=== PATIENT | female | born 1955 | race Caucasian/White ===

== ENCOUNTER 2017-02-16 06:54 | Emergency (ER) | payer MEDICAID ==
[~2017-02-16] VITALS: Ht 160 cm; Wt 73.3 kg
[~2017-02-16 06:54] MED LIST: ACET325T14 PO; ASPI-515 PO; ATOR20TA PO; CHOLESTEROL PO; DOCU100C33 PO; FAMO40TA61 PO; FEXO180T15 PO; FLUT16SP NAS; FLUT1DIS INH; GABA300C10 PO; HYDR-3240 PO; LORA10TA3 PO; LOSA25TA2 PO; METO25TA35 PO; NAPR500T4 PO; NITR0.4T SL
[2017-02-16] MEDS ORDERED: ATOR10TA9 PO (07:23)
[2017-02-16] MEDS ORDERED: OMEG1CAP23 PO (07:24)
[2017-02-16] MEDS ORDERED: SODIUM CHLORIDE 0.9% 1,000 ML IV ONE (07:24)
[2017-02-16] MEDS ORDERED: SODIUM CHLORIDE FLUSH 10ML SYR IVF ONE (07:30)
[2017-02-16] MEDS ORDERED: ONDANSETRON 2MG/ML, 2ML IVPush ONE (07:30)
[2017-02-16] MEDS ORDERED: ONDANSETRON 2MG/ML, 2ML ONE (07:34)
[2017-02-16] MEDS ORDERED: MORPHINE SULFATE 4 MG/ML, 1ML ONE ×2 (07:34→08:46)
[2017-02-16 07:37] LABS: HEMATOCRIT 43.4 % (34.6-47.8); HEMOGLOBIN 14.3 g/dL (11.7-16.4)
[2017-02-16] MEDS: MORPHINE SULFATE 4 MG/ML, 1ML IVPush PRN ×2 (07:37→08:49)
[2017-02-16 07:49] LABS: BLOOD UREA NITROGEN 11 mg/dL (7-18)
[2017-02-16 07:52] LABS: ASPARTATE AMINO TRANSFERASE 14 U/L (15-37)
[2017-02-16] MEDS ORDERED: OMNIPAQUE 350 MG/ML, 100ML BOTTLE ONE (09:10)
[2017-02-16 09:18] LABS: IS PT STATUS REG ER OR PRE ER? YES
[2017-02-16 10:43] VITALS: BP 114/55
== END 2017-02-16 11:09 | disposition home or self-care (01) ==
LOC: ED 10:14
DX: N30.00 Acute cystitis without hematuria (principal); E78.5 Hyperlipidemia, unspecified; Z79.82 Long term (current) use of aspirin; Z90.710 Acquired absence of both cervix and uterus
CPT/HCPCS: 36415; 74177; 74181; 76700; 80053; 81001; 83690; 84484; 85025; 87077; 87086; 93005; 96361; 96374; 96375; 96376; 99285; J2405; J7030; Q9967; 87186

== ENCOUNTER 2017-04-02 17:33 | Emergency (ER) | payer MEDICAID ==
[~2017-04-02] VITALS: Ht 160 cm; Wt 74.3 kg
[~2017-04-02 17:33] MED LIST changes: +ATOR10TA9 PO; +OMEG1CAP23 PO
[2017-04-02] MEDS ORDERED: SODIUM CHLORIDE FLUSH 10ML SYR IVF ONE (18:00)
[2017-04-02] MEDS ORDERED: MAALOX/HYOSCYAMINE/LIDOCAINE 45 ML BTL PO ONE ×2 (18:00→19:00)
[2017-04-02] MEDS ORDERED: ONDANSETRON 2MG/ML, 2ML IVPush ONE (18:00)
[2017-04-02] MEDS ORDERED: SODIUM CHLORIDE 0.9% 1,000ML IVBOLUS ONE (18:00)
[2017-04-02 18:16] LABS: BASOPHILS # (AUTO) 0.05 x10^3/uL (0-0.1); BASOPHILS % (AUTO) 1 % (0-1); EOSINOPHILS # (AUTO) 0.11 x10^3/uL (0-0.4); EOSINOPHILS % (AUTO) 2 % (1-7); LYMPHOCYTES % (AUTO) 27 % (22-44); MD NO; MEAN CORPUSCULAR HEMOGLOBIN 29.7 pg (27.0-34.8); MEAN CORPUSCULAR HGB CONC 32.9 g/dL (32.4-35.8); MEAN CORPUSCULAR VOLUME 90.3 fL (80-100); MEAN PLATELET VOLUME 9.7 fL (7.4-10.4); MONOCYTES # (AUTO) 0.56 x10^3/uL (0.2-0.8); MONOCYTES % (AUTO) 7 % (2-9); NEUTROPHILS # (AUTO) 4.87 x10^3/uL (1.8-6.8); NEUTROPHILS % (AUTO) 63 % (42-75); PLATELET COUNT 180 x10^3/uL (130-400); RED BLOOD COUNT 4.57 x10^6/uL (3.82-5.3)
[2017-04-02 18:23] LABS: ALANINE AMINOTRANSFERASE 38 U/L (12-78); ALBUMIN 3.4 g/dL (3.4-5.0); ANION GAP 7 mmol/L (5-15); CALCIUM 8.4 mg/dL (8.5-10.1); CHLORIDE 111 mmol/L (98-107); CREATININE 0.66 mg/dL (0.55-1.02)
[2017-04-02 18:26] LABS: ALKALINE PHOSPHATASE 116 U/L (45-117); BILIRUBIN,TOTAL 0.2 mg/dL (0.2-1.0); TOTAL PROTEIN 6.9 g/dL (6.4-8.2)
[2017-04-02 18:43] LABS: TROPONIN I < 0.015 ng/mL (0.000-0.045)
[2017-04-02] MEDS ORDERED: HYDROmorphone 1 MG/ML, 1ML IVPush PRN (19:00)
[2017-04-02 19:26] LABS: MICROSCOPIC NOT IND
[2017-04-02 19:28] LABS: CULTURE INDICATED? NO
[2017-04-02] MEDS ORDERED: HYDROmorphone 1 MG/ML, 1ML ONE (19:33)
[2017-04-02] MEDS ORDERED: ONDANSETRON 2MG/ML, 2ML ONE (19:33)
[2017-04-02] MEDS ORDERED: MAALOX/HYOSCYAMINE/LIDOCAINE 45 ML BTL ONE (19:33)
[2017-04-02 19:39] VITALS: BP 141/70
== END 2017-04-02 20:31 | disposition home or self-care (01) ==
LOC: ED 19:55
DX: R10.13 Epigastric pain (principal); K21.9 Gastro-esophageal reflux disease without esophagitis; E78.00 Pure hypercholesterolemia, unspecified; Z90.710 Acquired absence of both cervix and uterus
CPT/HCPCS: 36415; 71045; 76700; 80053; 81003; 83690; 84484; 85025; 93005; 96361; 96374; 96375; 99285; J1170; J2405; J7030

== ENCOUNTER 2018-03-30 10:05 | Emergency (ER) | payer MEDICAID ==
[~2018-03-30] VITALS: Ht 160 cm; Wt 72.0 kg
[~2018-03-30 10:05] MED LIST changes: +LORA-247 PO; -LORA10TA3 PO; +NAPR-685 PO; -NAPR500T4 PO
[2018-03-30 10:07] VITALS: BP 124/77
[2018-03-30] MEDS ORDERED: OMEP-110 PO (10:37)
[2018-03-30] MEDS ORDERED: AMIT25TA PO (10:37)
--- NOTE | 2018-03-30 10:42 | NUR ---
urine sample collected and walked to lab at this time. pt resting in bed with spouse at bedside. awaiting MD assessment. Will continue to monitor.
[2018-03-30 10:51] LABS: MICROSCOPIC AUTO
[2018-03-30] MEDS ORDERED: MORPHINE SULFATE 4 MG/ML, 1ML IVPush PRN (11:00)
[2018-03-30] MEDS ORDERED: ONDANSETRON 2MG/ML, 2ML IVPush ONE (11:00)
[2018-03-30] MEDS ORDERED: SODIUM CHLORIDE FLUSH 10ML SYR IVF ONE (11:00)
--- NOTE | 2018-03-30 11:04 | NUR ---
us at bedside at this time.
[2018-03-30 11:06] LABS: BASOPHILS # (AUTO) 0.03 x10^3/uL (0-0.1); BASOPHILS % (AUTO) 1 % (0-1); EOSINOPHILS # (AUTO) 0.12 x10^3/uL (0-0.4); EOSINOPHILS % (AUTO) 2 % (1-7); LYMPHOCYTES # (AUTO) 1.57 x10^3/uL (1-3.4); LYMPHOCYTES % (AUTO) 29 % (22-44); MD NO; MEAN CORPUSCULAR HEMOGLOBIN 30.1 pg (27.0-34.8); MEAN CORPUSCULAR HGB CONC 33.2 g/dL (32.4-35.8); MEAN CORPUSCULAR VOLUME 90.8 fL (80-100); MEAN PLATELET VOLUME 10.1 fL (7.4-10.4); MONOCYTES # (AUTO) 0.31 x10^3/uL (0.2-0.8); MONOCYTES % (AUTO) 6 % (2-9); NEUTROPHILS # (AUTO) 3.31 x10^3/uL (1.8-6.8); NEUTROPHILS % (AUTO) 62 % (42-75); PLATELET COUNT 183 x10^3/uL (130-400); RED BLOOD COUNT 4.77 x10^6/uL (3.82-5.3); RED CELL DISTRIBUTION WIDTH 14.1 % (9.6-15.2)
[2018-03-30 11:14] LABS: ALBUMIN 3.6 g/dL (3.4-5.0); ANION GAP 5 mmol/L (5-15); CALCIUM 9.1 mg/dL (8.5-10.1); CHLORIDE 109 mmol/L (98-107)
--- NOTE | 2018-03-30 11:16 | NUR ---
ekg completed and pt placed on monitor at this time. IV started. pt medicated per orders. will continue to monitor.
[2018-03-30 11:17] LABS: ALANINE AMINOTRANSFERASE 26 U/L (12-78); ALKALINE PHOSPHATASE 146 U/L (45-117); BILIRUBIN,TOTAL 0.4 mg/dL (0.2-1.0); CREATININE 0.69 mg/dL (0.55-1.02); TOTAL PROTEIN 7.2 g/dL (6.4-8.2)
[2018-03-30] MEDS ORDERED: ONDANSETRON 2MG/ML, 2ML ONE (11:24)
[2018-03-30] MEDS ORDERED: MORPHINE SULFATE 4 MG/ML, 1ML ONE (11:25)
--- NOTE | 2018-03-30 11:36 | NUR ---
pt placed on oxygen due to decrease in oxygen saturations post medication administration. will continue to monitor.
--- NOTE | 2018-03-30 11:50 | NUR ---
Beside report to
--- NOTE | 2018-03-30 12:00 | NUR ---
PT TO CT AT THIS TIME. PT REPORTING RIGHT FLANK AND LOWER RIGHT QUADRANT PAIN. PT HAS PAINFUL URINATION WITH NO INCREASED FREQUENCY.
--- NOTE | 2018-03-30 12:22 | NUR ---
SPOKE WITH REGARDIGN IF UA NEEDS TO BE CULTURED. AGREES AT THIS TIME.
[2018-03-30] MEDS ORDERED: CEFTRIAXONE PMX 1GM/50ML 50 ML IV ONE (12:30)
[2018-03-30] MEDS ORDERED: CEFTRIAXONE PMX 1GM/50ML 50 ML ONE (12:42)
--- NOTE | 2018-03-30 12:46 | NUR ---
IV ABX STARTED.
--- NOTE | 2018-03-30 13:22 | NUR ---
Patient/Caregiver given discharge instructions and they have confirmed that they understand the instructions. Patient ambulatory with steady gait.
== END 2018-03-30 13:24 | disposition home or self-care (01) ==
LOC: ED 10:56
DX: N30.01 Acute cystitis with hematuria (principal); K21.9 Gastro-esophageal reflux disease without esophagitis; E78.5 Hyperlipidemia, unspecified; E78.00 Pure hypercholesterolemia, unspecified
CPT/HCPCS: 36415; 74176; 76700; 80053; 81001; 83690; 85025; 87077; 87086; 93005; 96365; 96375; 99284; J0696; J2405; 87186

== ENCOUNTER 2018-04-01 08:42 | Emergency (ER) | payer MEDICAID ==
[~2018-04-01] VITALS: Ht 160 cm; Wt 72.7 kg
[~2018-04-01 08:42] MED LIST changes: +AMIT25TA PO; +OMEP-110 PO
[2018-04-01] MEDS ORDERED: SODIUM CHLORIDE FLUSH 10ML SYR IVF ONE (09:30)
[2018-04-01] MEDS ORDERED: MORPHINE SULFATE 4 MG/ML, 1ML IVPush PRN (09:30)
[2018-04-01] MEDS ORDERED: MORPHINE SULFATE 4 MG/ML, 1ML ONE (09:38)
[2018-04-01 09:50] LABS: BASOPHILS # (AUTO) 0.03 x10^3/uL (0-0.1); BASOPHILS % (AUTO) 1 % (0-1); EOSINOPHILS % (AUTO) 4 % (1-7); LYMPHOCYTES # (AUTO) 1.25 x10^3/uL (1-3.4); LYMPHOCYTES % (AUTO) 22 % (22-44); MD NO; MEAN CORPUSCULAR HEMOGLOBIN 30.2 pg (27.0-34.8); MEAN CORPUSCULAR HGB CONC 33.4 g/dL (32.4-35.8); MEAN CORPUSCULAR VOLUME 90.6 fL (80-100); MEAN PLATELET VOLUME 10.5 fL (7.4-10.4); MONOCYTES # (AUTO) 0.29 x10^3/uL (0.2-0.8); MONOCYTES % (AUTO) 5 % (2-9); NEUTROPHILS # (AUTO) 3.88 x10^3/uL (1.8-6.8); NEUTROPHILS % (AUTO) 69 % (42-75); PLATELET COUNT 174 x10^3/uL (130-400); RED BLOOD COUNT 4.66 x10^6/uL (3.82-5.3); RED CELL DISTRIBUTION WIDTH 14.1 % (9.6-15.2)
[2018-04-01 09:59] LABS: ALBUMIN 3.4 g/dL (3.4-5.0); ANION GAP 5 mmol/L (5-15); CALCIUM 8.6 mg/dL (8.5-10.1); CHLORIDE 108 mmol/L (98-107)
--- NOTE | 2018-04-01 09:59 | NUR ---
PT HERE FOR EPIGASTRIC PAIN FOR 2 DAYS. NAUSEA AND VOMITING. HAS HAD SAME PAIN IN THE PAST AND DESPITE TEST HAS NOT BEEN DIAGNOSED. DENIES DIARRHEA. SEEN HERE THIS WEEK AND GIVEN ABX FOR UTI. STILL HAVING DYSURIA. HX OF CARDIAC ISSUES, NOT SURE WHAT TYPE, AND HIGH CHOLESTEROL. MEDICATED FOR 9/10 PAIN AND NOW REPORTING PAIN IS 4/10. TO RADIOLOGY [facility] AT THIS TIME.
[2018-04-01 10:05] LABS: ALANINE AMINOTRANSFERASE 23 U/L (12-78); ALKALINE PHOSPHATASE 132 U/L (45-117); BILIRUBIN,TOTAL 0.6 mg/dL (0.2-1.0); CREATININE 0.62 mg/dL (0.55-1.02); TOTAL PROTEIN 7.1 g/dL (6.4-8.2); TROPONIN I < 0.015 ng/mL (0.000-0.045)
--- NOTE | 2018-04-01 10:15 | NUR ---
REPORT FROM EVERARDO BARBER.
--- NOTE | 2018-04-01 10:25 | NUR ---
PT UP TO RESTROOM TO OBTAIN URINE. URINE SENT TO LAB.
[2018-04-01 10:50] VITALS: BP 127/64
[2018-04-01 10:51] LABS: MICROSCOPIC AUTO
[2018-04-01 10:53] LABS: CULTURE INDICATED? YES
--- NOTE | 2018-04-01 11:50 | NUR ---
PT GIVEN DC PAPERWORK. PT VERBALIZED UNDERSTANDING. PT AWARE TO FOLLOW UP WITH PCP NEEDED.
== END 2018-04-01 11:57 | disposition home or self-care (01) ==
LOC: ED 09:24
DX: N30.00 Acute cystitis without hematuria (principal); R11.0 Nausea; E78.5 Hyperlipidemia, unspecified; K21.9 Gastro-esophageal reflux disease without esophagitis; E78.00 Pure hypercholesterolemia, unspecified; Z90.710 Acquired absence of both cervix and uterus
CPT/HCPCS: 36415; 74022; 80053; 81001; 83605; 83690; 84484; 85025; 87086; 87106; 93005; 96374; 99284

== ENCOUNTER 2018-04-24 09:41 | Emergency (ER) | payer MEDICARE, MEDICAID ==
[~2018-04-24] VITALS: Ht 160 cm; Wt 72.0 kg
[2018-04-24] MEDS ORDERED: ONDANSETRON 2MG/ML, 2ML ONE (10:21)
[2018-04-24] MEDS ORDERED: MORPHINE SULFATE 4 MG/ML, 1ML ONE ×2 (10:21→11:46)
[2018-04-24] MEDS: MORPHINE SULFATE 4 MG/ML, 1ML IVPush PRN ×2 (10:27→12:00)
[2018-04-24] MEDS ORDERED: MAALOX/HYOSCYAMINE/LIDOCAINE 45 ML BTL PO ONE (10:30)
[2018-04-24] MEDS ORDERED: MAALOX/HYOSCYAMINE/LIDOCAINE 45 ML BTL ONE (10:52)
[2018-04-24] MEDS ORDERED: ONDANSETRON 2MG/ML, 2ML IVPush ONE (11:00)
[2018-04-24 11:14] LABS: MEAN CORPUSCULAR HEMOGLOBIN 29.2 pg (27.0-34.8); MEAN CORPUSCULAR HGB CONC 32.4 g/dL (32.4-35.8); MEAN CORPUSCULAR VOLUME 90.4 fL (80-100); MEAN PLATELET VOLUME 10.4 fL (7.4-10.4); PLATELET COUNT 146 x10^3/uL (130-400); RED BLOOD COUNT 4.71 x10^6/uL (3.82-5.3); RED CELL DISTRIBUTION WIDTH 14.4 % (9.6-15.2)
[2018-04-24 11:21] LABS: ALANINE AMINOTRANSFERASE 67 U/L (12-78); ALBUMIN 3.6 g/dL (3.4-5.0); ANION GAP 7 mmol/L (5-15); CALCIUM 8.5 mg/dL (8.5-10.1); CHLORIDE 106 mmol/L (98-107)
[2018-04-24 11:24] LABS: ALKALINE PHOSPHATASE 162 U/L (45-117); CREATININE 0.68 mg/dL (0.55-1.02); TOTAL PROTEIN 6.9 g/dL (6.4-8.2)
[2018-04-24] MEDS ORDERED: SODIUM CHLORIDE FLUSH 10ML SYR IVF ONE (12:00)
[2018-04-24 12:35] LABS: MICROSCOPIC AUTO
[2018-04-24 12:48] LABS: MD YES
[2018-04-24 12:50] LABS: <RBC MORPHOLOGY> NORMAL; BAND#(MANUAL) 1.96 x10^3/uL; BANDS%(MANUAL) 13 % (0-7); EOS% (MANUAL) 2 % (1-7); LYMPH#(MANUAL) 0.45 x10^3/uL (1-3.4); LYMPHS% (MANUAL) 3 % (22-44); MONOS#(MANUAL) 0.45 x10^3/uL (0.3-2.7); MONOS% (MANUAL) 3 % (2-9); SEG#(MANUAL) 11.93 x10^3/uL (1.8-6.8); SEGS% (MANUAL) 79 % (42-75)
[2018-04-24 12:51] LABS: <PLATELET ESTIMATE> ADEQUATE; LARGE PLATELETS 1+
[2018-04-24 13:08] LABS: CULTURE INDICATED? YES
--- NOTE | 2018-04-24 13:27 | NUR ---
BREAK RN - PT IN CT. AT BEDSIDE.
[2018-04-24] MEDS ORDERED: OMNIPAQUE 350 MG/ML, 100ML BOTTLE ONE (13:37)
[2018-04-24 14:18] VITALS: BP 149/72
== END 2018-04-24 14:21 | disposition home or self-care (01) ==
LOC: ED 12:49
DX: K29.00 Acute gastritis without bleeding (principal); K21.9 Gastro-esophageal reflux disease without esophagitis; E78.00 Pure hypercholesterolemia, unspecified; E78.5 Hyperlipidemia, unspecified; G44.209 Tension-type headache, unspecified, not intractable; Z90.710 Acquired absence of both cervix and uterus; Z87.19 Personal history of other diseases of the digestive system
CPT/HCPCS: 36415; 74021; 74177; 80053; 81001; 83690; 85025; 87086; 93005; 96374; 96375; 96376; 99284; J2405; Q9967

== ENCOUNTER 2018-08-07 12:06 | Emergency (ER) | payer MEDICARE, MEDICAID ==
[~2018-08-07] VITALS: Ht 160 cm; Wt 71.1 kg
[~2018-08-07 12:06] MED LIST changes: -NITR0.4T SL; +NITR0.4T41 SL
[2018-08-07 12:37] LABS: BASOPHILS # (AUTO) 0.02 x10^3/uL (0-0.1); BASOPHILS % (AUTO) 0 % (0-1); EOSINOPHILS # (AUTO) 0.08 x10^3/uL (0-0.4); EOSINOPHILS % (AUTO) 1 % (1-7); LYMPHOCYTES # (AUTO) 1.33 x10^3/uL (1-3.4); LYMPHOCYTES % (AUTO) 20 % (22-44); MD NO; MEAN CORPUSCULAR HEMOGLOBIN 29.7 pg (27.0-34.8); MEAN CORPUSCULAR HGB CONC 32.2 g/dL (32.4-35.8); MEAN CORPUSCULAR VOLUME 92.4 fL (80-100); MONOCYTES # (AUTO) 0.34 x10^3/uL (0.2-0.8); MONOCYTES % (AUTO) 5 % (2-9); NEUTROPHILS # (AUTO) 5.02 x10^3/uL (1.8-6.8); NEUTROPHILS % (AUTO) 74 % (42-75); PLATELET COUNT 167 x10^3/uL (130-400); RED BLOOD COUNT 4.81 x10^6/uL (3.82-5.3); RED CELL DISTRIBUTION WIDTH 14.8 % (9.6-15.2)
[2018-08-07 12:50] LABS: ALANINE AMINOTRANSFERASE 22 U/L (12-78); ALBUMIN 3.6 g/dL (3.4-5.0); ANION GAP 6 mmol/L (5-15); CALCIUM 8.9 mg/dL (8.5-10.1); CHLORIDE 104 mmol/L (98-107); CREATININE 0.73 mg/dL (0.55-1.02)
[2018-08-07 12:52] LABS: ALKALINE PHOSPHATASE 120 U/L (45-117); BILIRUBIN,TOTAL 0.4 mg/dL (0.2-1.0); TOTAL PROTEIN 6.8 g/dL (6.4-8.2)
--- NOTE | 2018-08-07 13:56 | NUR ---
PT TO ED FOR EPIGASTRIC PAIN X2 DAYS [facility] ASSOCIATED N/V. LBM TODAY. PT STATES SHE STOPPED TAKING ALL OF HER MEDICATION EXCEPT OMEPRAZOLE 12 DAYS AGO. PT CONNECTED TO MONITORS. VSS. NO NEEDS EXPRESSED. AWAITING EDMD ASSESSMENT.
--- NOTE | 2018-08-07 13:57 | NUR ---
PT WAS UP WITH STEADY GAIT TO RR PRIOR TO BEING ROOMED AND WAS NOT GIVEN A URINE CUP. PT UNABLE TO PROVIDE UA SAMPLE AT THIS TIME.
[2018-08-07] MEDS ORDERED: FAMOTIDINE 20 MG/2 ML ONE (14:10)
[2018-08-07] MEDS ORDERED: ONDANSETRON 2MG/ML, 2ML ONE (14:10)
[2018-08-07] MEDS ORDERED: HYDROcodone/APAP 5/325 TABLET ONE (14:10)
--- NOTE | 2018-08-07 14:27 | NUR ---
REPORT FROM BROOKLYN MCGEE, IV ESTABLISHED AND PT MEDICATED PER MAR
[2018-08-07] MEDS ORDERED: FAMOTIDINE 20 MG/2 ML IVP ONE (14:30)
[2018-08-07] MEDS ORDERED: ONDANSETRON 2MG/ML, 2ML IVPush ONE (14:30)
[2018-08-07] MEDS ORDERED: HYDROcodone/APAP 5/325 TABLET PO ONE (14:30)
--- NOTE | 2018-08-07 14:33 | NUR ---
IV ESTABLISHED. PT TO CT.
--- NOTE | 2018-08-07 14:33 | NUR ---
REPORT TO EVERARDO WAY.
[2018-08-07] MEDS ORDERED: OMNIPAQUE 350 MG/ML, 100ML BOTTLE ONE (14:52)
--- NOTE | 2018-08-07 15:32 | NUR ---
URINE SENT TO LAB, AWAITNG UA RESULTS. PT STATES SHE IS FEELING BETTER. AT BEDSIDE. CALL LIGHT WITHIN REACH
[2018-08-07 15:53] LABS: MICROSCOPIC NOT IND
[2018-08-07 15:55] VITALS: BP 116/54
[2018-08-07 16:04] LABS: CULTURE INDICATED? NO
== END 2018-08-07 16:31 | disposition home or self-care (01) ==
LOC: ED 16:14
DX: K29.00 Acute gastritis without bleeding (principal); Z90.710 Acquired absence of both cervix and uterus; K21.9 Gastro-esophageal reflux disease without esophagitis
CPT/HCPCS: 36415; 74177; 76700; 80053; 81003; 83690; 85025; 93005; 96374; 96375; 99284; J2405; J3490; Q9967

== ENCOUNTER → 2020-05-05 | Outpatient (CLI) | payer MEDICARE, MEDICAID ==
[~2020-05-05] MED LIST changes: -ASPI-515 PO; +ASPI-963 PO; +ASPI81TA45 PO; +ATOR-2 PO; -FLUT16SP NAS; +FLUT16SP24 NAS; +HYDR-1067 PO; -HYDR-3240 PO; +NITR0.4T28 SL
== END | disposition home or self-care (01) ==
LOC: RAD 08:02
PROVIDERS: ATTEND Physician Assistant
DX: R94.5 Abnormal results of liver function studies (principal); R10.11 Right upper quadrant pain
CPT/HCPCS: 78227; A9537; J2805